=== PATIENT | male | born 1990 | race Caucasian/White ===

== ENCOUNTER 2017-12-07 17:50 | Emergency (ER) | payer OTHER ==
[2017-12-07] MEDS ORDERED: HYDROmorphone HCL INJ 2 MG/ML VIAL IV ONE (18:02)
[2017-12-07] MEDS ORDERED: ONDANSETRON INJ 4 MG/2 ML VIAL ONE (18:02)
[2017-12-07] MEDS ORDERED: ONDANSETRON INJ 4 MG/2 ML VIAL IV ONE (18:03)
[2017-12-07] MEDS ORDERED: HYDROmorphone HCL INJ 2 MG/ML VIAL ONE (18:05)
[2017-12-07] MEDS ORDERED: PROPOFOL 200 MG/20 ML VIAL IV ONE ×2 (18:08→18:23)
--- NOTE | 2017-12-07 18:10 | ED.PDOC ---
History of Present Illness - General Chief Complaint: Upper Extremity Injury Time Seen by Provider: 12/07/17 18:02 - History of Present Illness Initial Comments: HE WAS [place]UB[place] AND INJURED HIS LEFT SHOULDER, NOW PAINFUL Occurred: just prior to arrival Pain - Upper Extremity: severe: Shoulder, left Method of Injury: sports injury Improving Factors: nothing Worsening Factors: movement Allergies/Adverse Reactions: Allergies NO KNOWN ALLERGY Allergy (Verified 12/07/17 17:58) Home Medications: Ambulatory Orders Tramadol HCl 50 mg PO Q6HR #20 tab 12/07/17 Review of Systems - Review of Systems Constitutional: States: no symptoms reported EENTM: States: no symptoms reported Respiratory: States: no symptoms reported Cardiology: States: no symptoms reported Gastrointestinal/Abdominal: States: no symptoms reported Genitourinary: States: no symptoms reported Musculoskeletal: States: joint pain Neurological: States: no symptoms reported Endocrine: States: no symptoms reported Family Medical History - Family History Father Family History: No Known Physical Exam - Physical Exam General Appearance: Alert, Anxious, Obvious distress, Well Developed, Well Groomed Eyes, Ears, Nose, Throat Exam: PERRL/EOMI, normal ENT inspection, pharynx normal Neck: non-tender, full range of motion, supple Cardiovascular/Respiratory: regular rate, rhythm, normal peripheral pulses, no JVD, normal breath sounds Abdominal Exam: non-tender Shoulder Exam: deformity, pain, soft tissue tenderness, swelling Elbow/Forearm Exam: normal inspection Wrist Exam: normal inspection Hand Exam: normal inspection Neuro/Tendon: normal sensation, responds to pain Skin Exam: normal color Procedures - Joint Reduction shoulder Conscious Sedation: Yes - PROPOFOL-220 MG Reduction Attempts: 2 Pre-Procedure NV Exam: Yes Post Joint Reduction Film: NON DISPLACED FRQATURE OF THE HUMERAL HEAD Departure - Departure Clinical Impression: Closed anterior dislocation of left shoulder Qualifiers: Encounter type: initial encounter Qualified Code(s): S43.015A - Anterior dislocation of left humerus, initial encounter Fracture of humeral head, left, closed Qualifiers: Encounter type: initial encounter Qualified Code(s): S42.292A - Other displaced fracture of upper end of left humerus, initial encounter for closed fracture Time of Disposition: 18:58 Disposition: Discharge to Home or Self Care Condition: Good Departure Forms: ED Discharge - Pt. Copy, Patient Portal Self Enrollment Instructions: DI for Humeral Fracture, Shoulder Dislocation Diet: resume usual diet Referrals: Christopher Sorensen MD [Referring] - 1-2 Weeks Prescriptions: Tramadol HCl 50 mg PO Q6HR #20 tab Home Medications: Ambulatory Orders Tramadol HCl 50 mg PO Q6HR #20 tab 12/07/17
--- NOTE | 2017-12-07 18:43 | RAD ---
EXAM DESCRIPTION: Shoulder,Left 2 or More Views CLINICAL HISTORY: PAIN COMPARISON: None FINDINGS: One view(s) submitted. There is a comminuted fracture of the left glenoid and a dislocation of the left humerus head. No other fracture. No AC joint separation. IMPRESSION: Left humerus head dislocation and comminuted displaced fracture of the glenoid. Detail is limited on single view. Electronically signed by: Sixto Torres 12/07/2017 6:42 PM CDT
--- NOTE | 2017-12-07 18:45 | RAD ---
EXAM DESCRIPTION: Shoulder,Left 1 View CLINICAL HISTORY: relocation COMPARISON: Same day at 1803 hours FINDINGS: One view(s) submitted. Left humerus head is no longer dislocated but there is a mildly displaced fracture of the left humerus head. No definite glenoid fracture is seen. CT would provide greater detail as there was apparent fracture of the glenoid on the previous view but only a single view is available. Axillary Y view or scapular view may be helpful if CT is not possible. IMPRESSION: Humerus head dislocation has been relocated. There is a fracture of the humerus head. No definite glenoid fracture is currently seen but only a single view is available. Electronically signed by: Sixto Torres 12/07/2017 6:43 PM CDT
[2017-12-07] MEDS ORDERED: HYDROCOD/APAP 5/325 (ER DISP) #3 TAB PO ONE (19:06)
[2017-12-09 17:46] VITALS: BP 141/90; TEMP 99; O2SAT 99
== END 2017-12-07 19:22 | disposition home or self-care (01) ==
LOC: ER 17:50
DX: S43.015A Anterior dislocation of left humerus, initial encounter (principal); X58.XXXA Exposure to other specified factors, initial encounter; Y93.16 Activity, rowing, canoeing, kayaking, rafting and tubing; Y92.828 Other wilderness area as the place of occurrence of the external cause
CPT/HCPCS: 73020; 73030; J1170; J2405; J3490